=== PATIENT | female | born 1940 | race Caucasian/White ===

== ENCOUNTER 2017-04-19 00:06 | Emergency (ER) | payer OTHER ==
[~2017-04-19] VITALS: Ht 167.6 cm; Wt 74.8 kg
--- NOTE | ~2017-04-19 | EKG ---
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1940 Requested By: Ida Collins Order Number: [id number] MD: Camilo Abebe Measurements Intervals [place] Rate: 70 P: -5 AR: 222 QRS: 24 QRSD: 106 T: 39 QT: 416 QTc: 449 Interpretive Statements Sinus rhythm Prolonged AR interval Low voltage, precordial leads RSR' in V1 or V2, probably normal variant Compared to ECG 06/11/2016 19:23:43 No significant change was found Electronically Signed On 04-20-2017 8:38:46 CDT by Camilo Abebe [email or web address] <ELECTRONICALLY SIGNED> By: Camilo Abebe MD, [facility] 04/20/17 0838 0021 0021 Camilo Abebe MD, [facility] /EPI
[~2017-04-19 00:06] MED LIST: ASPIRIN EC81 M1 PO; CRESTOR10 MG PO; LISINOPRIL5 MG PO; OMEPRAZOLE20 MG PO; PROTONIX40 MG PO; VITAMIN D1000 UNIT PO; XANAX 0.25 MG0.25 MG PO
[2017-04-19 00:51] LABS: ABSOLUTE NEUTROPHILS 2.2 thou/uL (1.4-8.2); BASOPHILS 1.5 % (0.0-2.0); EOSINOPHILS 2.2 % (0.0-3.0); HEMATOCRIT 42.8 % (37.0-47.0); LYMPHOCYTES 49.8 % (24.0-44.0); MCH 31.8 pg (26.0-34.0); MCHC 35.1 g/dL (28.0-37.0); MCV 90.6 fL (80.0-100.0); MONOCYTES 11.8 % (1.0-8.0); PLATELET COUNT 163 thou/uL (150-400); POLYS 34.7 % (36.0-66.0); RBC 4.72 mil/uL (4.20-5.00); RDW 12.6 % (10.5-14.5); WBC 6.2 thou/uL (4.0-11.0)
[2017-04-19 00:52] LABS: MANUAL DIFF NO
[2017-04-19 00:55] LABS: CALCIUM 9.7 mg/dL (8.5-10.1); CREATININE 1.5 mg/dL (0.6-1.0); POTASSIUM 3.9 mmol/L (3.5-5.1)
[2017-04-19 01:16] LABS: APTT 23.8 Seconds (24.5-32.8); PROTIME 10.7 Seconds (9.3-11.4)
[2017-04-19] MEDS ORDERED: LOVASTATIN 20 M20 MG PO (01:52)
[2017-04-19] MEDS ORDERED: ANTIVERT25 MG PO (02:42)
[2017-04-19] MEDS ORDERED: ZOFRAN ODT4 MG PO (02:42)
== END 2017-04-19 03:30 | disposition home or self-care (01) ==
LOC: ER 00:06
PROVIDERS: Emergency Medicine
DX: H93.12 Tinnitus, left ear (principal); R42 Dizziness and giddiness; K21.9 Gastro-esophageal reflux disease without esophagitis; I10 Essential (primary) hypertension; Z90.89 Acquired absence of other organs; Z90.710 Acquired absence of both cervix and uterus; Z85.3 Personal history of malignant neoplasm of breast

== ENCOUNTER 2017-08-19 12:46 | Emergency (ER) | payer OTHER ==
[~2017-08-19] VITALS: Ht 167.6 cm; Wt 77.1 kg
[~2017-08-19 12:46] MED LIST changes: +ANTIVERT25 MG PO; +LOVASTATIN 20 M20 MG PO; +ZOFRAN ODT4 MG PO
[2017-08-19 13:56] LABS: ABSOLUTE NEUTROPHILS 4.5 thou/uL (1.4-8.2); BASOPHILS 0.6 % (0.0-2.0); EOSINOPHILS 0.6 % (0.0-3.0); HEMATOCRIT 49.9 % (37.0-47.0); HEMOGLOBIN 17.1 gm/dL (12.0-15.0); LYMPHOCYTES 18.8 % (24.0-44.0); MCH 30.5 pg (26.0-34.0); MCHC 34.2 g/dL (28.0-37.0); MCV 89.1 fL (80.0-100.0); MONOCYTES 10.3 % (1.0-8.0); PLATELET COUNT 158 thou/uL (150-400); POLYS 69.7 % (36.0-66.0); RDW 13.1 % (10.5-14.5); WBC 6.4 thou/uL (4.0-11.0)
[2017-08-19 13:57] LABS: MANUAL DIFF NO
[2017-08-19 14:01] LABS: URINE BILIRUBIN NEGATIVE (Negative); URINE BLOOD TRACE (Negative); URINE COLOR YELLOW; URINE GLUCOSE-RANDOM* NEGATIVE (Negative); URINE KETONES TRACE (Negative); URINE PROTEIN (DIPSTICK) 1+ (Negative); URINE SPECIFIC GRAVITY >= 1.030 (1.003-1.035); URINE UROBILINOGEN 0.2 E.U./dl (0.2-1.0)
[2017-08-19 14:02] LABS: URINE LEUKOCYTES-REFLEX 1+ (Negative)
[2017-08-19 14:07] LABS: CALCIUM 9.4 mg/dL (8.5-10.1); CREATININE 1.3 mg/dL (0.6-1.0); POTASSIUM 3.8 mmol/L (3.5-5.1)
[2017-08-19 14:14] LABS: ALBUMIN 3.6 g/dL (3.4-5.0); TOTAL PROTEIN 7.3 g/dL (6.4-8.2)
[2017-08-19 14:14] LABS: CASTS None Seen /LPF (None Seen); SQUAMOUS >10 Many /LPF (0-3); URINE RBC 3-10 Few /HPF (0-2); URINE WBC-REFLEX >25 Many /HPF (0-5)
[2017-08-19 14:15] LABS: CRYSTALS None Seen /LPF (None Seen)
[2017-08-19] MEDS ORDERED: ZOFRAN ODT4 M1 PO (15:38)
[2017-08-19] MEDS ORDERED: MACROBID 100 M100 M1 PO (15:39)
== END 2017-08-19 15:53 | disposition home or self-care (01) ==
LOC: ER 12:46
PROVIDERS: Physician Assistant
DX: E86.0 Dehydration (principal); N17.9 Acute kidney failure, unspecified; N39.0 Urinary tract infection, site not specified; K21.9 Gastro-esophageal reflux disease without esophagitis; I10 Essential (primary) hypertension; Z90.710 Acquired absence of both cervix and uterus; Z85.3 Personal history of malignant neoplasm of breast; Y99.8 Other external cause status

== ENCOUNTER 2019-01-22 05:00 | Emergency (ER) | payer OTHER ==
[~2019-01-22] VITALS: Ht 167.6 cm; Wt 77.1 kg
[~2019-01-22 05:00] MED LIST changes: +MACROBID 100 M100 M1 PO; +ZOFRAN ODT4 M1 PO
[2019-01-22 05:47] LABS: HEMATOCRIT 41.8 % (37.0-47.0); HEMOGLOBIN 14.2 gm/dL (12.0-15.0); MCH 30.7 pg (26.0-34.0); MCV 90.3 fL (80.0-100.0); PLATELET COUNT 145 thou/uL (150-400); RBC 4.63 mil/uL (4.20-5.00); RDW 12.5 % (10.5-14.5); WBC 3.8 thou/uL (4.0-11.0)
[2019-01-22 05:56] LABS: ANION GAP 13 mmol/L (7-16); BUN 26 mg/dL (7-18); CALCIUM 9.4 mg/dL (8.5-10.1); CHLORIDE 104 mmol/L (98-107); CO2 20 mmol/L (21-32); CREATININE 1.4 mg/dL (0.6-1.0); GLUCOSE 145 mg/dL (74-106); POTASSIUM 3.9 mmol/L (3.5-5.1); SODIUM 137 mmol/L (136-145)
[2019-01-22 06:06] LABS: ALBUMIN 3.7 g/dL (3.4-5.0); SGOT 15 U/L (15-37); SGPT 21 U/L (30-65); TOTAL BILIRUBIN 0.9 mg/dL (<0.1-1.0); TOTAL PROTEIN 6.6 g/dL (6.4-8.2); TROPONIN-I <0.06 ng/mL (<0.06)
[2019-01-22 06:19] LABS: ABSOLUTE NEUTROPHILS 1.4 thou/uL (1.4-8.2)
[2019-01-22 06:20] LABS: PLATELET ESTIMATE DECREASED
[2019-01-22 06:45] VITALS: BP 161/76
--- NOTE | 2019-01-23 08:49 | EKG ---
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1940 Requested By: Bhavani Perry Order Number: [id number] MD: Camilo Abebe Measurements Intervals [place] Rate: 70 P: -2 GA: 214 QRS: 21 QRSD: 89 T: 41 QT: 382 QTc: 413 Interpretive Statements Sinus rhythm Borderline prolonged GA interval Low voltage, precordial leads RSR' in V1 or V2, right VCD Compared to ECG 04/19/2017 00:21:16 No significant change was found Electronically Signed On 01-23-2019 8:49:48 CDT by Camilo Abebe [email or web address] ��������������������������������������������� <ELECTRONICALLY SIGNED> ���������������������������������������� By: Camilo Abebe MD, [facility] ��������������������������������������������� 01/23/19 0849 0506 0506 Camilo Abebe MD, [facility] /EPI
== END 2019-01-22 06:46 | disposition home or self-care (01) ==
LOC: ER 05:00
PROVIDERS: Student in an Organized Health Care Education/Training Program
DX: R00.2 Palpitations (principal); D69.6 Thrombocytopenia, unspecified; D72.819 Decreased white blood cell count, unspecified; I12.9 Hypertensive chronic kidney disease with stage 1 through stage 4 chronic kidney disease, or unspecified chronic kidney disease; N18.9 Chronic kidney disease, unspecified; K21.9 Gastro-esophageal reflux disease without esophagitis; E78.5 Hyperlipidemia, unspecified; Z90.710 Acquired absence of both cervix and uterus; Z85.3 Personal history of malignant neoplasm of breast; Z98.890 Other specified postprocedural states

== ENCOUNTER → 2019-02-08 | Outpatient (CLI) | payer OTHER ==
--- NOTE | 2019-02-08 09:46 | 2DMMODE ---
[facility] [place] [address] 2 D/M-MODE ECHOCARDIOGRAM Name: KINSEY MULLEN [facility]#: [id number] ������������� Admission: 02/08/19 ������������� Attend Phys: Garrick Stephen Discharge: ��� ������������� ��� Date of : 40 Date of Service: 02/08/19 0946 �� Report #: [id number] �������� ��������������������������������������������[id number] THIS REPORT FOR: //name// APPROVED REPORT Study performed: 02/08/2019 09:00:40 EXAM: Comprehensive 2D, Doppler, and color-flow Echocardiogram Patient Location: Out-Patient Status: routine BSA: 1.92 HR: 68 bpm BP: 144/76 mmHg Rhythm: NSR Other Information Study Quality: Adequate Technically limited study due to breast implants. Indications Atrial Fibrillation Hx: HTN, HLP, CA 2D Dimensions RVDd: 35.10 mm IVSd: 10.61 (7-11mm) LVOT Diam: 20.07 (18-24mm) LVDd: 40.36 mm PWd: 10.06 (7-11mm) Ascending Ao: 31.98 (22-36mm) LVDs: 29.87 (25-40mm) Aortic Root: 33.37 mm Volumes Left Atrial Volume (Systole) Single Plane 4CH: 23.39 mL Single Plane 2CH: 42.50 mL LA ESV Index: 19.00 mL/m2 Aortic Valve AoV Peak Narayan.: 1.04 m/s AO Peak Gr.: 4.35 mmHg LVOT Max P.64 mmHg LVOT Max V: 0.95 m/s SARAH Vmax: 2.89 cm2 Mitral Valve [facility] [address] [address] 2 D/M-MODE ECHOCARDIOGRAM Name: KINSEY MULLEN JORDI Room #: REG [facility]#: [id number] ������������� Admission: 02/08/19 ������������� Attend Phys: Garrick Stephen Discharge: ��� ������������� ��� Date of : 40 Date of Service: 02/08/19 0946 �� Report #: [id number] �������� ��������������������������������������������[id number] E/A Ratio: 0.7 MV Decel. Time: 214.31 ms MV E Max Narayan.: 0.67 m/s MV A Narayan.: 0.93 m/s MV PHT: 62.15 ms IVRT: 79.58 ms Pulmonary Valve PV Peak Narayan.: 0.96 m/s PV Peak Gr.: 3.66 mmHg Pulmonary Vein P Vein S: 0.53 m/s P Vein D: 0.38 m/s P Vein S/D Ratio: 1.39 Tricuspid Valve RAP Estimate: 5.00 mmHg Left Ventricle The left ventricle is normal size. There is normal LV segmental wall motion. There is normal left ventricular wall thickness. Left ventricular systolic function is normal. LVEF is 55-60%. Mild diastolic dysfunction is present (impaired relaxation pattern). Right Ventricle The right ventricle is normal size. The right ventricular systolic function is normal. Atria The left atrium size is normal. The right atrium size is normal. Aortic Valve Aortic valve is trileaflet, mildly thickened and calcified. No aortic regurgitation is present. There is no aortic valvular stenosis. Mitral Valve The mitral valve is normal in structure. There is no mitral valve regurgitation noted. Tricuspid Valve The tricuspid valve is normal in structure. Trace tricuspid regurgitation. Unable to assess PA pressure. [facility] [address] [place] [address] [place] [address] 2 D/M-MODE ECHOCARDIOGRAM Name: KINSEY MULLEN JORDI Room #: [facility]#: [id number] ������������� Admission: 02/08/19 ������������� Attend Phys: [facility] Discharge: ��� ������������� ��� Date of : 40 Date of Service: 02/08/19 0946 �� Report #: [id number] �������� ��������������������������������������������[id number] Pulmonic Valve The pulmonary valve is normal in structure. Trace pulmonic regurgitation. Great Vessels The aortic root is normal in size. The ascending aorta is normal in size. IVC is normal in size and collapses >50% with inspiration. Pericardium There is no pericardial effusion. <Conclusion> The left ventricle is normal size. LVEF is 55-60%. Aortic valve is trileaflet, mildly thickened and calcified. The mitral valve is normal in structure. The tricuspid valve is normal in structure. Trace tricuspid regurgitation. Unable to assess PA pressure. The pulmonary valve is normal in structure. Trace pulmonic regurgitation. There is no pericardial effusion. ��������������������������������������������� <ELECTRONICALLY SIGNED> ���������������������������������������� By: Konstantin Castaneda MD ��������������������������������������������� 02/08/19945 5 5 Konstantin Castaneda MD /INF
== END ==
LOC: CV 08:40
DX: I35.8 Other nonrheumatic aortic valve disorders (principal); I48.91 Unspecified atrial fibrillation; I10 Essential (primary) hypertension; E78.5 Hyperlipidemia, unspecified

== ENCOUNTER → 2019-02-21 | Outpatient (CLI) | payer OTHER ==
--- NOTE | ~2019-02-21 | P ---
[facility] [place] [address] PROCEDURE REPORT Name: KINSEY MULLEN [id number] Admission: 02/21/19 ������������������ Attend Phys: Garrick Stephen MD Discharge: ������������������ Date of : 40 Report #: [id number] THIS REPORT FOR: //name// CC: Viktor Stephen PROCEDURE: Confirm implant. PREOPERATIVE DIAGNOSIS: Palpitations. DESCRIPTION OF PROCEDURE: The patient underwent informed consent. The patient was then prepped in a sterile fashion. I injected lidocaine at the incision site. Incision was made and the device was injected under the skin. A single layer of suture was placed under the skin layer and a surgical glue was placed on the outer skin layer. There were no procedure related complications. Of note, we did have to place the device somewhat more medial than usual due to her breast implants, but we stayed a good distance away from these. The implanted device was a [employer] model #3500, serial #[id number]. The device was programmed to its nominal settings. CONCLUSIONS: Successful implantation of an implantable loop recorder. ��������������������������������������������� ���������������������������������������� By: ��������������������������������������������� 1007 0420 Garrick Stephen MD /nt
[2019-02-21 10:16] VITALS: BP 140/69
== END | disposition home or self-care (01) ==
LOC: CATH 06:55
DX: R00.2 Palpitations (principal); N18.9 Chronic kidney disease, unspecified; Z79.82 Long term (current) use of aspirin; Z79.899 Other long term (current) drug therapy; Z87.440 Personal history of urinary (tract) infections; Z98.890 Other specified postprocedural states

== ENCOUNTER → 2019-12-26 | Outpatient (CLI) | payer OTHER | LOC: SJCVC 09:33 | PROVIDERS: ATTEND Internal Medicine Cardiovascular Disease | DX: Z45.09 Encounter for adjustment and management of other cardiac device (principal); R94.31 Abnormal electrocardiogram [ECG] [EKG]; I44.0 Atrioventricular block, first degree; I25.10 Atherosclerotic heart disease of native coronary artery without angina pectoris; I12.9 Hypertensive chronic kidney disease with stage 1 through stage 4 chronic kidney disease, or unspecified chronic kidney disease; N18.3 Chronic kidney disease, stage 3 (moderate); Z90.49 Acquired absence of other specified parts of digestive tract; Z90.710 Acquired absence of both cervix and uterus; Z79.899 Other long term (current) drug therapy ==

== ENCOUNTER → 2020-06-26 | Outpatient (CLI) | payer OTHER | LOC: SJCVCIMAG 09:29 | PROVIDERS: ATTEND Internal Medicine Cardiovascular Disease | DX: R94.31 Abnormal electrocardiogram [ECG] [EKG] (principal); I44.0 Atrioventricular block, first degree; R00.1 Bradycardia, unspecified; I25.10 Atherosclerotic heart disease of native coronary artery without angina pectoris; I12.9 Hypertensive chronic kidney disease with stage 1 through stage 4 chronic kidney disease, or unspecified chronic kidney disease; N18.30 Chronic kidney disease, stage 3 unspecified; Z79.899 Other long term (current) drug therapy; Z87.891 Personal history of nicotine dependence ==

== ENCOUNTER 2021-03-24 08:19 | Emergency (ER) | payer OTHER ==
[~2021-03-24] VITALS: Ht 167.6 cm; Wt 79.4 kg
[2021-03-24 08:58] LABS: ABSOLUTE NEUTROPHILS 2.8 thou/uL (1.4-8.2); BASOPHILS 2.7 % (0.0-2.0); CALCIUM 9.3 mg/dL (8.5-10.1); CREATININE 1.5 mg/dL (0.6-1.0); EOSINOPHILS 3.7 % (0.0-3.0); HEMOGLOBIN 14.1 gm/dL (12.0-15.0); LYMPHOCYTES 34.2 % (24.0-44.0); MCH 31.7 pg (26.0-34.0); MCHC 34.3 g/dL (28.0-37.0); MCV 92.4 fL (80.0-100.0); MONOCYTES 11.1 % (1.0-8.0); PLATELET COUNT 131 thou/uL (150-400); POLYS 48.3 % (36.0-66.0); POTASSIUM 4.4 mmol/L (3.5-5.1); RBC 4.44 mil/uL (4.20-5.00); RDW 12.9 % (10.5-14.5); WBC 5.8 thou/uL (4.0-11.0)
[2021-03-24 09:04] LABS: ALBUMIN 3.8 g/dL (3.4-5.0); TOTAL BILIRUBIN 1.2 mg/dL (0.2-1.0); TOTAL PROTEIN 6.9 g/dL (6.4-8.2)
[2021-03-24] MEDS ORDERED: AMOXICILLIN 50500 MG PO (10:09)
[2021-03-24 10:15] VITALS: BP 143/65
== END 2021-03-24 10:15 | disposition home or self-care (01) ==
LOC: ER 08:19
PROVIDERS: Emergency Medicine
DX: S01.511A Laceration without foreign body of lip, initial encounter (principal); S63.592A Other specified sprain of left wrist, initial encounter; K21.9 Gastro-esophageal reflux disease without esophagitis; I10 Essential (primary) hypertension; Z90.710 Acquired absence of both cervix and uterus; Z90.13 Acquired absence of bilateral breasts and nipples; Z79.82 Long term (current) use of aspirin; Z79.899 Other long term (current) drug therapy; Z90.89 Acquired absence of other organs; W10.8XXA Fall (on) (from) other stairs and steps, initial encounter; Y93.89 Activity, other specified; Y92.098 Other place in other non-institutional residence as the place of occurrence of the external cause; Y99.8 Other external cause status

== ENCOUNTER → 2021-06-26 | Outpatient (CLI) | payer OTHER ==
[~2021-06-26] MED LIST changes: +AMOXICILLIN 50500 MG PO
== END ==
LOC: SJCVC 13:21
PROVIDERS: ATTEND Internal Medicine Cardiovascular Disease
DX: R94.31 Abnormal electrocardiogram [ECG] [EKG] (principal); I44.0 Atrioventricular block, first degree; I48.91 Unspecified atrial fibrillation; I12.9 Hypertensive chronic kidney disease with stage 1 through stage 4 chronic kidney disease, or unspecified chronic kidney disease; N18.30 Chronic kidney disease, stage 3 unspecified; I25.10 Atherosclerotic heart disease of native coronary artery without angina pectoris; E78.5 Hyperlipidemia, unspecified; R73.9 Hyperglycemia, unspecified; Z86.16 Personal history of COVID-19; Z79.82 Long term (current) use of aspirin; Z79.899 Other long term (current) drug therapy; Z72.89 Other problems related to lifestyle; Z87.891 Personal history of nicotine dependence

== ENCOUNTER → 2021-08-04 | Outpatient (CLI) | payer OTHER | LOC: CAT 15:27 | PROVIDERS: ATTEND Nurse Practitioner | DX: N28.1 Cyst of kidney, acquired (principal); R10.32 Left lower quadrant pain; K86.89 Other specified diseases of pancreas; M47.816 Spondylosis without myelopathy or radiculopathy, lumbar region; I70.90 Unspecified atherosclerosis ==